=== PATIENT | male | born 1940 | race Caucasian/White ===

== ENCOUNTER → 2016-05-20 | Outpatient (CLI) | payer OTHER | LOC: BHFA 13:15 | PROVIDERS: ATTEND Internal Medicine Cardiovascular Disease | DX: I34.0 Nonrheumatic mitral (valve) insufficiency (principal); R06.02 Shortness of breath | CPT/HCPCS: 78452; 93017; 93306; A9500; J2785 ==

== ENCOUNTER → 2016-07-26 | Outpatient (CLI) | payer OTHER | LOC: FIMAGING 15:45 | PROVIDERS: ATTEND Internal Medicine | DX: I51.7 Cardiomegaly (principal); J90 Pleural effusion, not elsewhere classified; Q21.1 Atrial septal defect; I48.91 Unspecified atrial fibrillation; I34.0 Nonrheumatic mitral (valve) insufficiency; Z98.890 Other specified postprocedural states ==

== ENCOUNTER → 2016-11-18 | Outpatient (CLI) | payer OTHER ==
[~2016-11-18] MED LIST: IOPAMIDOL (ISOVUE-300) 100 ML BTL ONE
== END ==
LOC: FIMAGING 14:57
PROVIDERS: ATTEND Internal Medicine
DX: K80.20 Calculus of gallbladder without cholecystitis without obstruction (principal); K57.30 Diverticulosis of large intestine without perforation or abscess without bleeding; R16.1 Splenomegaly, not elsewhere classified; N40.0 Benign prostatic hyperplasia without lower urinary tract symptoms; M47.816 Spondylosis without myelopathy or radiculopathy, lumbar region; M41.86 Other forms of scoliosis, lumbar region
CPT/HCPCS: 74177; Q9967

== ENCOUNTER → 2016-11-23 | Outpatient (CLI) | payer OTHER | LOC: CIMAGING 07:35 | PROVIDERS: ATTEND Internal Medicine | DX: K80.10 Calculus of gallbladder with chronic cholecystitis without obstruction (principal) | CPT/HCPCS: 76705-PO ==

== ENCOUNTER 2016-12-13 08:59 | Day surgery (SDC) | payer OTHER ==
[~2016-12-13 08:59] MED LIST changes: -IOPAMIDOL (ISOVUE-300) 100 ML BTL ONE; +cefOXitin SODIUM 2 GM in D5W 100 ML IV ONE
[2016-12-13] MEDS ORDERED: LIDOCAINE 1% 2 ML INJ ONE (09:15)
[2016-12-13] MEDS ORDERED: LIDOCAINE 1% 2 ML INJ ID PRN (09:25)
[2016-12-13] MEDS ORDERED: LR 1,000 ML IV ONE (09:25)
[2016-12-13] MEDS ORDERED: BUPIVACAINE 0.5% 30 ML SDV ONE (10:09)
[2016-12-13] MEDS ORDERED: HEPARIN 1000 UNIT/1 ML MDV ONE (10:09)
[2016-12-13] MEDS ORDERED: ceFAZolin 1 GM/5 ML SYR ONE (10:09)
--- NOTE | 2016-12-13 12:47 | PDHPUP ---
History & Physical Update H&P update statement: This history and physical update is based on an assessment of the patient which was completed after admission or registration (within 24 hours), but prior to the surgery/procedure. Patient also asks us to remove a sternal scar suture that has needed to be trimmed in the past.
[2016-12-13] MEDS ORDERED: MIDAZOLAM 2 MG/2 ML VIAL IVP ONE (13:14)
--- NOTE | 2016-12-13 13:16 | PDANEPAE ---
ANE Past Medical History - Cardiovascular History Hx Hypertension: Yes Hx Arrhythmias: No Hx Chest Pain: No Hx Coronary Artery / Peripheral Vascular Disease: No Hx CHF / Valvular Disease: Yes Hx Palpitations: No Cardiovascular History Comment: Hx of atrial Fib. RHR is 40 BPM - Pulmonary History Hx COPD: No Hx Asthma/Reactive Airway Disease: No Hx Recent Upper Respiratory Infection: No Hx Oxygen in Use at Home: No Hx Sleep Apnea: No Sleep Apnea Screening Result - Last Documented: Negative - Neurologic History Hx Cerebrovascular Accident: No Hx Seizures: No Hx Dementia: No - Endocrine History Hx Diabetes: No - Renal History Hx Renal Disorders: No - Liver History Hx Hepatic Disorders: No - Neurological & Psychiatric Hx Hx Neurological and Psychiatric Disorders: No - Cancer History Hx Cancer: No - Congenital Disorder History Hx Congenital Disorders: No - GI History Hx Gastrointestinal Disorders: Yes Gastrointestinal History Comment: Gall bladder disease - Chronic Pain History Chronic Pain: Yes - Surgical History Prior Surgeries: mitral valve repair, maze procedure 08/2016 ANE Review of Systems Review of Systems: - Exercise capacity Exercise capacity: <4 METS METS (RN): 6 METS ANE Patient History - Allergies Allergies/Adverse Reactions: No Known Allergies Allergy (Unverified 08/01/10 08:35) - Home Medications Home Medications: NO HOME MEDICATIONS 08/01/10 [Last Taken Unknown] - NPO status NPO Since - Liquids (Date): 12/12/16 NPO Since - Liquids (Time): 22:00 NPO Since - Solids (Date): 12/12/16 NPO Since - Solids (Time): 22:00 - Smoking Hx Smoking Status: Never smoked - Family Anes Hx Family Hx Anesthesia Complications: none ANE Labs/Vital Signs - Vital Signs Blood Pressure: 161/62 Heart Rate: 38 Respiratory Rate: 15 O2 Sat (%): 96 Height: 193.04 cm Weight: 76.204 kg ANE Physical Exam - Airway Neck exam: FROM Mallampati Score: Class 2 - Pulmonary Pulmonary: no respiratory distress - Cardiovascular Cardiovascular: regular rate and rhythym - ASA Status ASA Status: III (status post Maze procedure)
[2016-12-13] MEDS ORDERED: MIDAZOLAM 2 MG/2 ML VIAL ONE (13:19)
[2016-12-13] MEDS ORDERED: PROPOFOL/EMULSION 500 MG/50 ML BOTTLE IV ONE (13:25)
[2016-12-13] MEDS ORDERED: fentaNYL 100 MCG/2 ML INJ ONE (13:25)
[2016-12-13] MEDS ORDERED: DEXAMETHASONE 4 MG/ML VIAL ONE (14:38)
[2016-12-13] MEDS ORDERED: SUGAMMADEX SODIUM 200 MG/2 ML VIAL IVP ONE (14:38)
[2016-12-13] MEDS ORDERED: ROCURONIUM 50 MG/5 ML VIAL ONE (14:38)
[2016-12-13] MEDS ORDERED: ONDANSETRON 4 MG/2 ML VIAL ONE (14:38)
--- NOTE | 2016-12-13 15:00 | POSTANESTH ---
Post Anesthetic Evaluation Cardiovascular Status: Normal, Stable Respiratory Status: Normal, Stable Level of Consciousness/Mental Status: Can Participate in Eval Pain Control: Adequate, Prn Tx Ordered Nausea/Vomiting Control: Adequate, Prn Tx Ordered Complications Possibly Related to Anesthesia: None Noted (glide scope intubation without difficulty or any trauma)
[2016-12-13] MEDS ORDERED: fentaNYL 100 MCG/2 ML INJ IVP PRN (15:01)
[2016-12-13] MEDS ORDERED: ONDANSETRON 4 MG/2 ML VIAL IVP PRN (15:01)
[2016-12-13] MEDS ORDERED: HYDROCODONE/APAP 5/325 TAB PO PRN (15:01)
[2016-12-13] MEDS ORDERED: NALOXONE HCL 0.4 MG/ML INJ IVP PRN (15:01)
[2016-12-13] MEDS ORDERED: OXYCODONE/APAP 5/325 TAB PO PRN (15:01)
[2016-12-13] MEDS ORDERED: OXYCODONE/APAP 5/325 TAB ONE (15:38)
[2016-12-13] MEDS ORDERED: ENALAPRILAT DIHYDRATE 1.25 MG/ML VIAL ONE (15:55)
[2016-12-13] MEDS: ENALAPRILAT DIHYDRATE 1.25 MG/ML VIAL IVP SCH ×2 (16:00→16:14)
[2016-12-13 17:00] VITALS: PULSE 38
--- NOTE | 2016-12-13 17:21 | POSTOPPROG ---
Post Op Note Date of Operation: 12/13/16 Surgeon: Marck Subramanian Anesthesiologist: Denton Stockton Anesthesia: GET(General Endotracheal) Pre-op Diagnosis: cholelithiasis, cholecystitis Post-op Diagnosis: same Procedure: lap conchita Findings: +stones, +inflammation, tortuous but relatively small ducts Inf/Abcess present in the surg proc area at time of surgery?: No EBL: Minimal Complications: none Specimen(s): gallbladder to pathology
[2016-12-13 17:57] VITALS: BP 128/62; RESP 16; TEMP 97.5; O2SAT 95
--- NOTE | 2016-12-17 05:47 | GOP ---
[f rep st] OPERATIVE REPORT DATE OF OPERATION: 12/13/2016 SURGEON: Marck Subramanian MD ANESTHESIOLOGIST: Dr. Stockton PREOPERATIVE DIAGNOSIS: Cholelithiasis, cholecystitis. POSTOPERATIVE DIAGNOSIS: Cholelithiasis, cholecystitis, sternal stitch PROCEDURE PERFORMED: 1. Laparoscopic cholecystectomy. 2. Removal of foreign body in the sternal wound. FINDINGS: Patient was found to have inflammation of the gallbladder with multiple stones and a torturous, but small, cystic duct. DESCRIPTION OF PROCEDURE: Patient taken to the operating room where he received satisfactory general endotracheal anesthesia by Dr. Stockton, placed in supine position, prepped and draped in usual sterile fashion. A periumbilical incision was made. A Veress needle was inserted. Pneumoperitoneum was established. Trocar was introduced. Laparoscope introduced. Good visualization was obtained. The other trocars were placed in the upper abdomen under direct vision. Gallbladder was elevated up. Adhesions were taken down. The cystic triangle was carefully exposed. Cystic duct and cystic artery were dissected free. A good clear view was obtained. The gallbladder was from the hepatic fossa and then both structures were multiply hemoclipped and divided with care to avoid injury to the common bile duct. Peritoneum over the gallbladder was incised and the gallbladder was dissected free from the bed and hepatic fossa, extracted through the upper midline port site. Trocars were removed under direct vision and after hemostasis was assured, trocar sites were closed with 0 Vicryl for the fascia, 4-0 Monocryl subcuticular stitch for the skin. All layers infiltrated with 0.5% Marcaine. At that point, attention was turned to a nodule in the patient's sternal incision. A short incision was made and dissection extended down to the mass which appeared to be a Prolene suture. This was divided and removed. The wound was closed with 4-0 Monocryl sutures and some 0.5% Marcaine. /[id number]/MODL MTDD
== END 2016-12-13 17:35 | disposition home or self-care (01) ==
LOC: FSGY 08:59
PROVIDERS: ATTEND Surgery
PROC: 0FT44ZZ Resection of Gallbladder, Percutaneous Endoscopic Approach (ICD-10-PCS; principal; 2016-12-13 10:45)
PROC: 0JC60ZZ Extirpation of Matter from Chest Subcutaneous Tissue and Fascia, Open Approach (ICD-10-PCS; principal; 2016-12-13 10:45)
DX: K80.20 Calculus of gallbladder without cholecystitis without obstruction (principal); K81.9 Cholecystitis, unspecified; M79.5 Residual foreign body in soft tissue
CPT/HCPCS: J0694; J1100; J2250; J2405; J2704; J3010